=== PATIENT | male | born 2000 | race African-American/Black ===

== ENCOUNTER 2022-08-05 22:50 | Emergency (ER) | payer SELFPAY ==
[2022-08-06] MEDS ORDERED: Acetaminophen 500 MG TAB ONE (00:56)
[2022-08-06] MEDS ORDERED: Ibuprofen 200 MG TAB ONE (00:56)
[2022-08-06] MEDS ORDERED: Penicillin V Potassium 250 MG TAB PO SCH (01:15)
== END 2022-08-06 01:16 | disposition home or self-care (01) ==
LOC: CSHERS 22:50
DX: K03.81 Cracked tooth (principal); Z87.891 Personal history of nicotine dependence
CPT/HCPCS: 99282